=== PATIENT | female | born 1980 | race Caucasian/White ===

== ENCOUNTER 2017-01-23 03:33 | Emergency (ER) | payer SELFPAY ==
[~2017-01-23] VITALS: Ht 167.6 cm; Wt 95.6 kg
[~2017-01-23 03:33] MED LIST: HYDR-3240 PO; IBUP-1222 PO
[2017-01-23] MEDS ORDERED: HYDROmorphone 1 MG/ML, 1ML ONE ×2 (04:23→05:15)
[2017-01-23] MEDS ORDERED: ONDANSETRON 2MG/ML, 2ML ONE (04:23)
[2017-01-23] MEDS ORDERED: KETOROLAC 30 MG/1 ML ONE (04:23)
[2017-01-23] MEDS ORDERED: KETOROLAC 60 MG/2 ML IVPush ONE (04:30)
[2017-01-23] MEDS ORDERED: PRED1TAB PO (04:30)
[2017-01-23] MEDS ORDERED: ANTIDEPRESSANT (04:30)
[2017-01-23] MEDS ORDERED: ONDANSETRON 2MG/ML, 2ML IVPush ONE (04:30)
[2017-01-23] MEDS ORDERED: HYDROmorphone 1 MG/ML, 1ML IV ONE ×2 (04:30→05:30)
[2017-01-23 04:55] LABS: HEMOGLOBIN 11.8 g/dL (11.7-16.4); WHITE BLOOD COUNT 17.9 x10^3/uL (3.4-10)
[2017-01-23 05:06] LABS: BLOOD UREA NITROGEN 16 mg/dL (7-18)
[2017-01-23] MEDS ORDERED: LORazepam 2 MG/ML, 1ML ONE (05:13)
[2017-01-23] MEDS ORDERED: DEXAMETHASONE 4 MG TABLET ONE (05:15)
[2017-01-23] MEDS ORDERED: DEXAMETHASONE 4 MG TABLET PO ONE (05:30)
[2017-01-23] MEDS ORDERED: LORazepam 2 MG/ML, 1ML IVPush ONE (05:30)
[2017-01-23 06:29] VITALS: BP 153/79
== END 2017-01-23 06:53 | disposition home or self-care (01) ==
LOC: ED 05:45
DX: M25.531 Pain in right wrist (principal)
CPT/HCPCS: 36415; 73110; 73130; 80048; 82040; 85025; 96374; 96375; 96376; 99285; J1170; J1885; J2060; J2405